=== PATIENT | male | born 1935 | race Caucasian/White ===

== ENCOUNTER 2019-06-06 08:40 | Observation (INO) ==
--- NOTE | 2019-06-06 09:52 | History & Physical Bridge Note ---
Date of Service June 06, 2019 History & Physical Bridge Note I have examined the patient, reviewed the History & Physical and in the interval since the performance of the History & Physical I have noted the following changes of clinical significance: no changes noted
--- NOTE | 2019-06-06 09:52 | Pre Anesthesia Assessment ---
Date of Service June 06, 2019 Pre Sedation Assessment Vital Signs Temp Pulse Resp BP Pulse Ox 06/06/19 09:27 36.9 C 57 L 20 161/87 H 97 Cardiovascular RRR, no murmur, no edema Respiratory normal respiratory effort, lungs clear to auscultation Pre-Sedation Airway Assessment Smoking Status: Never smoker Hx Sleep Apnea: No Short, Thick Neck: No Thyromental Distance: > or= 3.5 Finger Breadths Oral Cavity: + WNL Mallampati Class: II ASA: ASA3 NPO Status Date of Last Intake of Fluids: 06/05/19 Time of Last Intake of Fluids: 06:30 Last Oral Intake of Fluids Comment: sip with meds Date of Last Intake of Solid Food: 06/06/19 Time of Last Intake of Solid Foods: 18:00 Procedure Planning Contraindications for Sedation: none Current Medications Reviewed: Yes Notes The planned sedation has been discussed with the patient. Informed Consent was obtained. I have identified the patient, determined the appropriateness of kari tion and have assessed the patient immediately prior to the procedure. All medicine(s) and interventions are by my order.
[2019-06-06] MEDS ORDERED: LIDOCAINE HCL 1% 20 ML VIAL ONE (10:00)
[2019-06-06] MEDS ORDERED: BACITRACIN INJ 50,000 UNIT VIAL ONE (10:00)
[2019-06-06] MEDS ORDERED: BUPIVACAINE 0.25% 30 ML VIAL ONE (10:00)
[2019-06-06] MEDS ORDERED: MIDAZOLAM HCL 5 MG/ML 1 ML VIAL ONE (10:25)
[2019-06-06] MEDS ORDERED: CEFAZOLIN 250 MG/ML 1 GM VIAL ONE (10:25)
[2019-06-06] MEDS ORDERED: fentaNYL citrate 100 MCG/2 ML VIAL ONE (10:25)
[2019-06-06] MEDS ORDERED: OXYCODONE/ACETAMINOPHEN 5mg/325mg TAB PO PRN (11:41)
[2019-06-06] MEDS: ASPIRIN 81 MG ECTAB PO SCH (13:46)
[2019-06-06] MEDS: PANTOprazole 40 MG TAB PO SCH (13:47)
[2019-06-06] MEDS ORDERED: INFLUENZA ADMINISTRATION CHARGE ONE (14:15)
[2019-06-06] MEDS ORDERED: INFLUENZA VACCINE HIGH DOSE 65+ 0.5 ML SYR IM ONE (14:15)
[2019-06-06] MEDS: ACETAMINOPHEN 325 MG TAB PO PRN ×2 (15:20→20:46)
--- NOTE | 2019-06-06 15:48 | Operative Report ---
DATE OF OPERATION: 06/06/2019 PREOPERATIVE DIAGNOSIS: Sick sinus syndrome. POSTOPERATIVE DIAGNOSIS: Sick sinus syndrome. PROCEDURE: Dual chamber responsive permanent pacemaker under fluoroscopic guidance. SURGEON: Sandrine Puentes DO. TURRET LATHE SET UP OPERATOR: None. ANESTHESIA: Monitored conscious sedation administered under my supervision by Nazia Fitzpatrick, start time 10:28, end time 11:36, a total of 3 mg of Versed and 75 mcg of fentanyl. INTRAVENOUS FLUIDS: 30 mL. ANTIBIOTICS: 2 g of Ancef. BLOOD LOSS: 10 mL. URINE OUTPUT: None. SPECIMENS: None. FINDINGS: See below. DRAINS: None. 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 Due to his sick sinus syndrome, he is recommended a dual chamber pacemaker. CONSENT: Consent was obtained prior to the patient going into the electrophysiology lab. The patient was informed of risks, benefits and alternatives to the procedure. Risks include but not limited to sudden cardiac , cardiac arrhythmia, cerebrovascular accident, myocardial infarction, injury to the blood vessels, chamber of the heart, lungs, bleeding and infection. The patient understood these risks and agreed to the procedure as planned. Informed consent was obtained. DESCRIPTION OF THE PROCEDURE: The patient was brought into the electrophysiology lab in a fasting state. He was connected to continuous cardiac cath lab manager. A timeout was performed to ensure patient identity and procedure correctly. The patient was prepped and draped over the left infraclavicular space in normal surgical standard fashion. Monitored conscious sedation was given throughout the procedure for patient's comfort level. [place] precautions maintained throughout the procedure. 10 mL of 1% lidocaine-bupivacaine mixture were given in the left deltopectoral groove. Incision was made in the left deltopectoral groove. Blunt dissection was performed down to identify the cephalic vein. Cephalic vein was identified and isolated using 0 silk ties. The vein was nicked with 11 blade and a guidewire was inserted without any resistance. An 8-Kittitian sheath was inserted over the guidewire without any resistance. Dilator was removed and a second guidewire was inserted through the 8-Kittitian sheath to allow for retained venous access. The sheath was removed, flushed, dilator reinserted over and then it was reinserted over one of the guidewires. The guidewire and dilator removed. Right ventricular lead was then advanced into right ventricle and I tried to position into the right ventricular apex, but it kept riding up on some trabecula. So, we ultimately put it on the right ventricular mid septum. Of note, I did have to reposition it a few times, but there was adequate pacing and sensing thresholds and no diaphragmatic stimulation with high output pacing. The 8-Kittitian sheath was peeled away and lead was fixated to pectoralis muscle using 0 silk suture. A second 8-Kittitian sheath was inserted over the retained guidewire without any resistance. Guidewire and dilator removed. The right atrial lead was then advanced into the right atrium and positioned into the right atrial appendage under fluoroscopic guidance. There was adequate pacing and sensing thresholds and no diaphragmatic stimulation with high output pacing. The 8-Kittitian sheath was peeled away and lead was fixated to pectoralis muscle using 0 silk suture. Pacemaker pocket was created using blunt dissection over the pectoralis muscle within the pectoral fascia. The pocket was flushed with copious amounts of bacitracin saline wash and inspected for hemostasis. Pulse generator was then attached to the leads, making sure that the pins were in appropriate position, passed set screw and set screws were all tightened. Pulse generator was then placed in a Tyrx pouch as the patient did just have dental procedure 4 weeks ago and then it was placed in the pocket, making sure that the leads were lying flat beneath the device. A stay stitch using 0 silk suture was used to secure this to the pectoralis muscle. The incision was closed in a 3-layer fashion with 2-0 Vicryl interrupted suture followed by 3-0 Vicryl interrupted suture followed by 4-0 Monocryl running stitch. Dermabond was applied followed then by a Telfa and Micropore dressing. EQUIPMENT: 1. Pulse generator is a Medtronic Lucie XT DR TORIN Aceves [id number], serial number [id number]. 2. Right atrial lead Medtronic 5076-52 cm, serial number [id number]. 3. Right ventricular lead, Medtronic 5076-58 cm, serial number [id number]. 4. Antibiotic: Tyrx pouch reference [id number], lot number [id number], expiration 07/29/2019. INTRAOPERATIVE TESTIN. Right atrial lead: P waves 4 millivolts, impedance 589 ohms, threshold 0.3 volts at 0.5 milliseconds. 2. Right ventricular lead: R waves 7.2 millivolts, impedance 882 ohms, threshold 0.5 volts at 0.5 milliseconds. FINAL PARAMETERS THROUGH THE DEVICE: 1. Right atrial lead: P waves 1.9 millivolts, impedance 494 ohms, threshold 0.5 volts at 0.4 milliseconds. 2. Right ventricular lead: R waves 2.9 millivolts bipolar, for unipolar 6.5 millivolts, impedance 665 ohms, threshold 0.5 volts at 0.4 milliseconds. FINAL PARAMETERS: MVP 60/120. Right atrial amplitude 3.5 volts, pulse width 0.5 milliseconds, sensitivity 0.3 millivolts. Right ventricular amplitude 3.5 volts, pulse width 0.5 milliseconds, sensitivity 0.9 millivolts. IMPRESSION: Successful implantation of a dual chamber rate responsive permanent pacemaker under fluoroscopic guidance secondary to sick sinus syndrome. PLAN: Monitor patient overnight, 12-lead ECG, chest x-ray. He is not allowed to lift left elbow or left shoulder for 1 month. He cannot lift more than 10 pounds with the left arm for 2 weeks. He can shower in 2 days, let water run over the incision, do not scrub it. Try to keep the Micropore dressing on until his wound check the following week. We will increase his metoprolol to 25 mg twice a day and he will continue to follow with general cardiology. I attest to the content of the Intraoperative Record and any orders documented therein. Any exception s are noted below.
[2019-06-06] MEDS: METOPROLOL TARTRATE 25 MG TAB PO SCH (20:46)
[2019-06-06] MEDS: MEMANTINE HCL 5 MG TAB PO SCH (20:46)
[2019-06-07] MEDS: MEMANTINE HCL 5 MG TAB PO SCH (07:59)
[2019-06-07] MEDS: PANTOprazole 40 MG TAB PO SCH (07:59)
[2019-06-07] MEDS: ASPIRIN 81 MG ECTAB PO SCH (08:00)
[2019-06-07] MEDS: METOPROLOL TARTRATE 25 MG TAB PO SCH (08:00)
--- NOTE | 2019-06-07 08:22 | XRay Report ---
XR chest 2V routine HISTORY: 83 years-old Male post implant status post placement of a left subclavian pacer COMPARISON: None available TECHNIQUE: PA and lateral views of the chest FINDINGS: Cardiomediastinal and hilar silhouettes are within normal limits. Left subclavian pacer has been plac ed, distal leads overlying the expected locations of the right atrium and right ventricle. No postpro cedural pneumothorax identified. No pleural effusion, overt pulmonary edema or focal airspace consoli dation. Hazy ill-defined increased density of the lateral right midlung may be secondary to summation density. Degenerative changes are noted about the shoulders and spine. IMPRESSION: Status post placement of a left subclavian pacer. No postprocedural pneumothorax. The above report was generated using voice recognition software. It may contain grammatical, syntax o r spelling errors. Electronically signed by: Lawson Wells M.D. 06/07/2019 8:21 AM
[2019-06-07] MEDS ORDERED: DONEPEZIL HCL 5 MG TAB PO SCH (09:00)
--- NOTE | 2019-06-14 10:39 | Discharge Summary ---
Date of Service June 07, 2019 Admission HPI Per Admitting Provider pt admitted for elective ppm due to SSS Admission Exam Per Admitting Provider aaox3, NAD NC/AT, EOMI Supple No JVD Nrl S1/S2, No murmur CTA b/l no w/r/r soft nt/nd no LE edema b/l skin intact no focal deficits Principal Diagnosis SSS s/p dual chamber pacemaker Discharge Exam aaox3, NAD NC/AT, EOMI Supple No JVD Nrl S1/S2, No murmur CTA b/l no w/r/r soft nt/nd no LE edema b/l skin intact no focal deficits left pectoral incision intact, no hematoma mild ecchymosis ENMT Mallampati Class: II Respiratory normal respiratory effort, lungs clear to auscultation Cardiovascular RRR, no murmur, no edema Discharge Data Allergies Allergy/AdvReac Type Severity Reaction Status Date / Time No Known Allergies Allergy Unverified 10/24/13 23:19 Procedures Performed Operation Date: 06/06/19 10:00 Actual Procedures p Pacer with A/V Leads (Dual) - Sandrine Puentes DO Ordered Studies ECG: AP-VS CXR: No PTX leads in position Pacemaker Interrogation: Normal and stable lead testing since implant 06/06/19 06:58 CL Cath Imgs for PACS use only Routine Hospital Course (1) SSS (sick sinus syndrome): Total Time Total Time Spent Total Time Spent (In Minutes): 30 Total Time Includes: Examination of the Patient, Discharge Planning, Medication Reconciliation and Other Discharge Plan Discharge Items Patient Disposition: Home - Self-Care Reason For Visit: SSS, DUAL CHAMBER PACER Discharge Diagnosis: SSS s/p dual chamber ppm Condition on Discharge: Good Activity: As commented below Activity Comment: do not lift the left elbow over the left shoulder for 1 month Lifting: No more than 10 pounds Lifting Comment: do not lift more than 10 pounds with the left arm for 2 weeks Bathing: Keep incision dry Bathing Comment: can shower thurs let water run over the incision do not scrub it Sexual Activity: After two weeks Non-emergency contact: Jointer Operator Call non-emergency contact if: you have any medication questions Follow-up/Referrals: aGldino Grayson MD [Primary Care Provider] - Diet: Heart Healthy Addtl Attending Provider Instructions: try to keep the white dressing on until your wound check next week device and wound check saturday 06/16 if you notice any concerns at the incision site call my office Pending Studies at Discharge: No Stand-Alone Forms: [facility] Medications and DC Order Prescriptions: New metoprolol tartrate 25 mg Tablet 25 mg PO BID Qty: 60 RF: 0 Continued memantine 5 mg Tablet 5 mg PO BID RF: 0 atorvastatin [Lipitor] 20 mg Tablet DAILY RF: 0 donepezil [Aricept] 5 mg Tablet 5 mg PO DAILY RF: 0 lansoprazole [Prevacid] 30 mg Capsule,Delayed Release(Dr/Ec) 30 mg PO DAILY RF: 0 aspirin 81 mg Tablet,Chewable 81 mg PO DAILY RF: 0 fluticasone propionate [Flonase Allergy Relief] 50 mcg/actuation [place],Suspension 2 spray INTRANASAL DAILY RF: 0 ipratropium bromide 0.03 % [place],Non-Aerosol 2 spray INTRANASAL BID PRN (Reason: Allergy Symptoms) RF: 0 calcium carbonate-vitamin D3 [Calcium 600 + D(3)] 600 mg(1,500mg) -400 unit Tablet RF: 0 Discontinued metoprolol tartrate 25 mg Tablet 12.5 mg PO BID RF: 0 Discharge Orders: Discharge Order (Routine); Ordered 06/07/19 Ordered By: Sandrine Puentes Admission Data Admit Date/Time: 06/06/19 11:21 Attending Provider: Sandrine Puentes Admit Provider: Sandrine Puentes Primary Care Provider: Galdino Grayson Other Interventions: Discharge Summary Assessment (RN) Last Done: 06/07/19 14:06 DC Date/Time DO NOT enter until pt leaves facility: 06/07/19 14:33
== END 2019-06-07 14:33 | disposition home or self-care (01) ==
LOC: 2E 08:40 → EP 08:40

== ENCOUNTER 2022-07-23 18:54 | Observation (INO) ==
[2022-07-23 19:26] LABS: Basophils # (auto) 0.05 K/uL (0-0.2); Basophils % (auto) 0.4 %; Eosinophils # (auto) 0.04 K/uL (0-0.50); Eosinophils % (auto) 0.3 %; Hematocrit (blood only) 37.2 % (40.1-51.0); Hemoglobin 12.6 g/dl (14.0-18.0); Immature Granulocytes # (auto) 0.04 K/uL (0.00-0.02); Immature Granulocytes % (auto) 0.3 %; Lymphocytes # (auto) 0.98 K/uL (1.2-3.4); Lymphocytes % (auto) 7.6 %; Mean Corpuscular Hemoglobin 29.3 pg (25.0-34.0); Mean Corpuscular Hgb Conc 33.9 g/dL (32.0-36.0); Mean Corpuscular Volume 86.5 fL (80.0-100.0); Mean Platelet Volume 10.3 fL (9.4-12.4); Monocytes # (auto) 0.54 K/uL (0.24-0.82); Monocytes % (auto) 4.2 %; Neutrophils # (auto) 11.27 K/uL (1.4-6.5); Neutrophils % (auto) 87.2 %; Platelet Count 213 K/uL (130-400); RDW Coefficient of Variation 13.1 % (11.5-14.5); RDW Standard Deviation 40.8 fL (36.4-46.3); White Blood Count 12.92 K/ul (4.8-10.8)
[2022-07-23 19:45] LABS: Albumin Globulin Ratio 1.6 (0.9-2); Bilirubin,Total 0.6 mg/dl (0.2-1.0); Creatinine Clr Calc Pharmacy 30.6 ml/min; Est GFR (African American) 43.9 ml/min; Est GFR (Non-African American) 37.9 ml/min; Globulin 2.5 gm/dl (2.5-4.0); Potassium 4.5 mmol/L (3.5-5.1); Total Protein 6.5 gm/dl (6.0-8.3)
[2022-07-23] MEDS ORDERED: SODIUM CHLORIDE 0.9% 1000ML 500 ML IV ONE (19:51)
[2022-07-23] MEDS ORDERED: SODIUM CHLORIDE 0.9% 1000ML 1,000 ML IV STA (19:51)
[2022-07-23 20:30] LABS: Appearance Urine Clear (Clear); Bacteria Urine Automated Negative (Negative); Bilirubin Urine Negative (Negative); Blood Urine Negative (Negative); Color Urine Yellow; Epithelial Cell Urine Auto 0-5 /lpf (0-5); Glucose Urine UA Negative (Negative); Ketones Urine Trace (Negative); Leukocyte Esterase Urine Negative (Negative); Nitrite Urine Negative (Negative); Protein Urine 1+ (Negative); RBC Urine Automated 0-4 /hpf (0-4); Specific Gravity Urine 1.023 (1.000-1.030); Urobilinogen Urine Negative (Negative); pH Urine 5.5 (4.5-7.5)
--- NOTE | 2022-07-24 00:15 | Emergency Department Note ---
Impression & Plan Abdominal pain, lower, Constipation, Acute hypotension, Leukocytosis ED Provider Note INFORMANT: Family and patient ED PROVIDER(S): Isac Garza MD CHIEF COMPLAINT: Hypotension and constipation PLAN: Disposition: Admitted Condition: Good Outpatient prescription management: none Referral: None MEDICAL DECISION MAKING: Patient presented because of hypotension and constipation issues. He had some lower abdominal discomfort. He was hydrated. The patient's blood work revealed a mild leukocytosis and chemistry panel revealed some mild dehydration. Urinalysis was unremarkable as were LFTs. The patient underwent CT imaging. He had some delay due to volume to get his read. The read does show moderate amount of stool but no other acute findings. Patient was given an enema. Given the patient's profound hypotension in the 70s and constipation issues with mild leukocytosis further management in the hospital felt to be appropriate. Record review indicates patient had an episode in May. [facility] Patient was evaluated in the ER for further management. Triage Nursing notes reviewed and agree them. Vital Signs: reviewed and remarkable for hypotension Differential diagnosis: Functional constipation, impaction, obstruction, volvulus, metabolic abnormality, infection, neurologic, sepsis, as well as other pathologies. Diagnostics interpreted by me: ECG: Twelve-lead ECG reveals a sinus rhythm with sinus arrhythmia and frequent dual chamber pacing. Anterolateral T wave inversions. Cardiac Monitoring: Cardiac monitoring ordered by me: The patient was placed on continuous cardiac monitoring and observed. It revealed a normal sinus rhythm at 60 beats per minute without ectopy or evidence of dysrhythmia. Imaging studies: CT ABDOMEN & PELVIS Without Contrast: No significant change as to 06/07/2022. No bowel obstruction or ileus. Abundant stool throughout the colon. No evidence for appendicitis. Scattered left colon diverticuli without evidence for diverticulitis. No free fluid. Liver is unremarkable. Gallbladder is unremarkable and without gallstones. No evidence for biliary ductal dilation. Pancreas is unremarkable. Spleen is unremarkable. No obstructive uropathy. Unchanged cyst in the upper pole of left kidney. No renal or ureteral calculi.. Urinary bladder is partially contracted with nonspecific wall thickening. No abdominal aortic aneurysm. Atherosclerotic vascular calcifications. Spine degenerative changes. Mild bibasilar atelectasis. HPI: The patient is a 86year old male who presents to the Emergency Room with complaints of constipation and low blood pressure. This started about 3 days ago regarding the constipation and the blood pressure was noted today. The patient also notes the following associated symptoms, lower abdominal pain. EMS noted the patient blood pressure was in the 70s. Family states he has had a similar problem in the past with constipation issues and his blood pressure dropping. The patient has been given milk of magnesia unsuccessfully for relieving factors. Patient has significant dementia. Unable to quantify pain. Pt denies LOC, headache, fevers, chills, chest pain, breathing difficulties, nausea, vomiting, back pain, melena, hematochezia, urinary symptoms, numbness, weakness, lymphadenopathy, rash, or other complaints. ROS: See above HPI for pertinent positives & negatives. Limited secondary to dementia. PAST MEDICAL HISTORY:See Below , sick sinus syndrome PAST SURGICAL HISTORY:See Below, pacemaker FAMILY HISTORY:See Below SOCIAL HISTORY:See Below, retired HOME MEDICATIONS:See Below ALLERGIES:See Below VITALS:See Below PHYSICAL EXAMINATION: GENERAL: Awake, alert, uncomfortable-appearing, in no distress HENT: Normocephalic, atraumatic. Oropharynx unremarkable. EYES: Normal conjunctiva. Sclera non-icteric. NECK: Inspection normal. Non-tender. Supple. No nuchal rigidity. FROM. No frederic s. RESPIRATORY: Clear to auscultation. No wheezes. No rales. Normal respiratory effort. CARDIAC: Normal rate. Normal rhythm. No murmurs. No rubs. Extremities warm and well perfused. Pulses equal. No JVD. GI: Soft, non-distended. Lower tenderness to palpation. No rebound or guarding. No masses. RECTAL: Deferred. MUSCULOSKELETAL: Atraumatic. Chest examination reveals no tenderness. The back is symmetrical on inspection without obvious abnormality. There is no CVA tenderness to palpation. No joint edema. LOWER EXTREMITIES: Calves are equal size bilaterally and non-tender. No edema. No discoloration. NEURO: Normal sensorium. No sensory or motor deficits noted. SKIN: No rash or jaundice noted. Isac Garza MD Past Med/Surg History Medical History GERD (gastroesophageal reflux disease) Hypertension SSS (sick sinus syndrome) pt admitted for elective ppm implant. Underwent procedure without any complications; monitored overnight and discharged home. Surgical History S/P tonsillectomy [place] teeth extracted Social History Smoking Status: Never smoker Hx Alcohol Use: No Hx Substance Use: No Preferred Language: Icelandic Communication Ability: Effective Senior Net Web Developer Required: No Beliefs That Will Affect Care: None Current Living Situation: Spouse Feels Safe at Home: Yes Assistive Devices: Glasses, Hearing Aid - Left and Hearing Aid - Right Allergies Allergies Allergy/AdvReac Type Severity Reaction Status Date / Time house dust Allergy Unknown ON MED LIST Verified 07/23/22 20:22 pollen extracts Allergy Unknown ON MED LIST Verified 07/23/22 20:22 Home Meds Home Medications Medication Instructions Recorded Confirmed aspirin 81 mg chewable tablet 81 mg PO DAILY 06/06/19 07/23/22 atorvastatin 20 mg tablet (Lipitor) 20 mg PO HS 06/06/19 07/23/22 calcium carbonate 600 mg-vitamin 1 tab PO DAILY 06/06/19 07/23/22 D3 10 mcg (400 unit) tablet (Calcium 600 + D(3)) fluticasone propionate 50 2 spray intranasal DAILY 06/06/19 07/23/22 mcg/actuation nasal spray,suspension (Flonase Allergy Relief) Health Shake 1 can PO BIDM 06/07/22 07/23/22 acetaminophen 325 mg tablet 650 mg PO Q4H PRN PAIN/FEVER >100 06/07/22 07/23/22 (Tylenol) docusate sodium 100 mg capsule 100 mg PO BID 06/07/22 07/23/22 levothyroxine 50 mcg tablet 50 mcg PO DAILYBB 06/07/22 07/23/22 lisinopril 5 mg tablet 5 mg PO DAILY 06/07/22 07/23/22 metoprolol tartrate 25 mg tablet 12.5 mg PO BID 06/07/22 07/23/22 omeprazole 20 mg capsule,delayed 20 mg PO DAILYBB 06/07/22 07/23/22 release sertraline 100 mg tablet 100 mg PO QAM 06/07/22 07/23/22 vit C 250 mg-vit E 90 mg-zinc 40 1 tab PO BID 06/07/22 07/23/22 mg-copper 1 [id number] capsule (PreserVision AREDS-2) triamcinolone acetonide 0.1 % 1 applic topical BID PRN ITCHY 07/23/22 07/23/22 topical cream AREAS Results & Data (ED) Vital Signs Vital Signs - 24 hr 07/23/22 18:57 07/23/22 19:01 07/23/22 19:01 Temperature 37 C Temperature Source Oral Pulse Rate 76 Pulse Rate [Apical] 69 Pulse Rate from SpO2 Sensor Respiratory Rate 19 18 Respiratory Effort / Characteristics Non-Labored Spontaneous Non-Labored Spontaneous Respiratory Depth Normal Normal Respiratory Pattern Regular Regular Blood Pressure 135/79 Blood Pressure [Right Arm] 114/69 Blood Pressure Mean 97 Blood Pressure Mean [Right Arm] 84 Pulse Oximetry 95 95 95 Oxygen Delivery Method Room Air Room Air Room Air Sepsis Recent Fever Within 48 Hours No Sepsis New/Unexplained Change in Mental Status No Sepsis Action Taken by Nursing No Action Required 07/23/22 19:13 07/23/22 19:01 07/23/22 19:02 Temperature Temperature Source Pulse Rate 66 70 Pulse Rate [Apical] Pulse Rate from SpO2 Sensor 70 Respiratory Rate 15 16 Respiratory Effort / Characteristics Respiratory Depth Respiratory Pattern Blood Pressure 108/64 114/69 Blood Pressure [Right Arm] Blood Pressure Mean 78 84 Blood Pressure Mean [Right Arm] Pulse Oximetry 94 94 Oxygen Delivery Method Room Air Sepsis Recent Fever Within 48 Hours Sepsis New/Unexplained Change in Mental Status Sepsis Action Taken by Nursing 07/23/22 19:06 07/23/22 19:06 07/23/22 19:10 Temperature Temperature Source Pulse Rate 66 64 Pulse Rate [Apical] Pulse Rate from SpO2 Sensor 66 64 Respiratory Rate 1 L 12 Respiratory Effort / Characteristics Respiratory Depth Respiratory Pattern Blood Pressure 114/65 Blood Pressure [Right Arm] Blood Pressure Mean 81 Blood Pressure Mean [Right Arm] Pulse Oximetry 92 95 Oxygen Delivery Method Sepsis Recent Fever Within 48 Hours Sepsis New/Unexplained Change in Mental Status Sepsis Action Taken by Nursing 07/23/22 19:11 07/23/22 19:11 07/23/22 19:15 Temperature Temperature Source Pulse Rate 66 Pulse Rate [Apical] Pulse Rate from SpO2 Sensor Respiratory Rate 16 Respiratory Effort / Characteristics Respiratory Depth Respiratory Pattern Blood Pressure 108/64 104/59 L Blood Pressure [Right Arm] Blood Pressure Mean 78 74 Blood Pressure Mean [Right Arm] Pulse Oximetry Oxygen Delivery Method Sepsis Recent Fever Within 48 Hours Sepsis New/Unexplained Change in Mental Status Sepsis Action Taken by Nursing 07/23/22 19:15 07/23/22 19:16 07/23/22 19:16 Temperature Temperature Source Pulse Rate 67 65 Pulse Rate [Apical] Pulse Rate from SpO2 Sensor 67 64 Respiratory Rate 12 16 Respiratory Effort / Characteristics Respiratory Depth Respiratory Pattern Blood Pressure 96/66 L 98/66 L Blood Pressure [Right Arm] Blood Pressure Mean 76 76 Blood Pressure Mean [Right Arm] Pulse Oximetry 95 95 Oxygen Delivery Method Sepsis Recent Fever Within 48 Hours Sepsis New/Unexplained Change in Mental Status Sepsis Action Taken by Nursing 07/23/22 19:20 07/23/22 19:20 07/23/22 19:25 Temperature Temperature Source Pulse Rate 81 64 Pulse Rate [Apical] Pulse Rate from SpO2 Sensor Respiratory Rate 15 15 Respiratory Effort / Characteristics Respiratory Depth Respiratory Pattern Blood Pressure 101/55 L Blood Pressure [Right Arm] Blood Pressure Mean 70 Blood Pressure Mean [Right Arm] Pulse Oximetry 96 95 Oxygen Delivery Method Sepsis Recent Fever Within 48 Hours Sepsis New/Unexplained Change in Mental Status Sepsis Action Taken by Nursing 07/23/22 19:25 07/23/22 19:30 07/23/22 19:30 Temperature Temperature Source Pulse Rate 87 Pulse Rate [Apical] Pulse Rate from SpO2 Sensor Respiratory Rate 15 Respiratory Effort / Characteristics Respiratory Depth Respiratory Pattern Blood Pressure 100/62 93/57 L Blood Pressure [Right Arm] Blood Pressure Mean 74 69 Blood Pressure Mean [Right Arm] Pulse Oximetry Oxygen Delivery Method Sepsis Recent Fever Within 48 Hours Sepsis New/Unexplained Change in Mental Status Sepsis Action Taken by Nursing 07/23/22 19:36 07/23/22 19:36 07/23/22 19:40 Temperature Temperature Source Pulse Rate 66 Pulse Rate [Apical] Pulse Rate from SpO2 Sensor 68 Respiratory Rate 16 Respiratory Effort / Characteristics Respiratory Depth Respiratory Pattern Blood Pressure 125/83 125/85 Blood Pressure [Right Arm] Blood Pressure Mean 97 98 Blood Pressure Mean [Right Arm] Pulse Oximetry 95 Oxygen Delivery Method Sepsis Recent Fever Within 48 Hours Sepsis New/Unexplained Change in Mental Status Sepsis Action Taken by Nursing 07/23/22 19:40 07/23/22 19:45 07/23/22 19:45 Temperature Temperature Source Pulse Rate 64 65 Pulse Rate [Apical] Pulse Rate from SpO2 Sensor Respiratory Rate 24 15 Respiratory Effort / Characteristics Respiratory Depth Respiratory Pattern Blood Pressure 116/67 Blood Pressure [Right Arm] Blood Pressure Mean 83 Blood Pressure Mean [Right Arm] Pulse Oximetry 96 Oxygen Delivery Method Sepsis Recent Fever Within 48 Hours Sepsis New/Unexplained Change in Mental Status Sepsis Action Taken by Nursing 07/23/22 19:50 07/23/22 19:50 07/23/22 19:55 Temperature Temperature Source Pulse Rate 61 Pulse Rate [Apical] Pulse Rate from SpO2 Sensor Respiratory Rate 15 Respiratory Effort / Characteristics Respiratory Depth Respiratory Pattern Blood Pressure 107/64 109/66 Blood Pressure [Right Arm] Blood Pressure Mean 78 80 Blood Pressure Mean [Right Arm] Pulse Oximetry 97 Oxygen Delivery Method Sepsis Recent Fever Within 48 Hours Sepsis New/Unexplained Change in Mental Status Sepsis Action Taken by Nursing 07/23/22 19:55 07/23/22 20:00 07/23/22 20:01 Temperature Temperature Source Pulse Rate 60 72 Pulse Rate [Apical] Pulse Rate from SpO2 Sensor 73 Respiratory Rate 15 19 Respiratory Effort / Characteristics Respiratory Depth Respiratory Pattern Blood Pressure 140/85 Blood Pressure [Right Arm] Blood Pressure Mean 103 Blood Pressure Mean [Right Arm] Pulse Oximetry 98 Oxygen Delivery Method Sepsis Recent Fever Within 48 Hours Sepsis New/Unexplained Change in Mental Status Sepsis Action Taken by Nursing 07/23/22 20:01 07/23/22 20:05 07/23/22 20:05 Temperature Temperature Source Pulse Rate 66 68 Pulse Rate [Apical] Pulse Rate from SpO2 Sensor 69 71 Respiratory Rate 18 21 Respiratory Effort / Characteristics Respiratory Depth Respiratory Pattern Blood Pressure 135/92 Blood Pressure [Right Arm] Blood Pressure Mean 106 Blood Pressure Mean [Right Arm] Pulse Oximetry 98 99 Oxygen Delivery Method Sepsis Recent Fever Within 48 Hours Sepsis New/Unexplained Change in Mental Status Sepsis Action Taken by Nursing 07/23/22 20:10 07/23/22 20:10 07/23/22 20:15 Temperature Temperature Source Pulse Rate 63 Pulse Rate [Apical] Pulse Rate from SpO2 Sensor 68 Respiratory Rate 17 Respiratory Effort / Characteristics Respiratory Depth Respiratory Pattern Blood Pressure 144/84 H 132/73 Blood Pressure [Right Arm] Blood Pressure Mean 104 92 Blood Pressure Mean [Right Arm] Pulse Oximetry 93 Oxygen Delivery Method Sepsis Recent Fever Within 48 Hours Sepsis New/Unexplained Change in Mental Status Sepsis Action Taken by Nursing 07/23/22 20:15 07/23/22 20:20 07/23/22 20:20 Temperature Temperature Source Pulse Rate 64 61 Pulse Rate [Apical] Pulse Rate from SpO2 Sensor 75 62 Respiratory Rate 16 18 Respiratory Effort / Characteristics Respiratory Depth Respiratory Pattern Blood Pressure 125/75 Blood Pressure [Right Arm] Blood Pressure Mean 91 Blood Pressure Mean [Right Arm] Pulse Oximetry 97 96 Oxygen Delivery Method Sepsis Recent Fever Within 48 Hours Sepsis New/Unexplained Change in Mental Status Sepsis Action Taken by Nursing 07/23/22 20:25 07/23/22 20:25 07/23/22 20:30 Temperature Temperature Source Pulse Rate 62 Pulse Rate [Apical] Pulse Rate from SpO2 Sensor Respiratory Rate 15 Respiratory Effort / Characteristics Respiratory Depth Respiratory Pattern Blood Pressure 126/75 123/71 Blood Pressure [Right Arm] Blood Pressure Mean 92 88 Blood Pressure Mean [Right Arm] Pulse Oximetry Oxygen Delivery Method Sepsis Recent Fever Within 48 Hours Sepsis New/Unexplained Change in Mental Status Sepsis Action Taken by Nursing 07/23/22 20:30 07/23/22 20:37 07/23/22 20:37 Temperature Temperature Source Pulse Rate 60 62 Pulse Rate [Apical] Pulse Rate from SpO2 Sensor 60 64 Respiratory Rate 16 17 Respiratory Effort / Characteristics Respiratory Depth Respiratory Pattern Blood Pressure 129/61 Blood Pressure [Right Arm] Blood Pressure Mean 83 Blood Pressure Mean [Right Arm] Pulse Oximetry 98 98 Oxygen Delivery Method Sepsis Recent Fever Within 48 Hours Sepsis New/Unexplained Change in Mental Status Sepsis Action Taken by Nursing 07/23/22 20:40 07/23/22 20:40 07/23/22 20:45 Temperature Temperature Source Pulse Rate 65 70 Pulse Rate [Apical] Pulse Rate from SpO2 Sensor 63 67 Respiratory Rate 17 15 Respiratory Effort / Characteristics Respiratory Depth Respiratory Pattern Blood Pressure 119/66 Blood Pressure [Right Arm] Blood Pressure Mean 83 Blood Pressure Mean [Right Arm] Pulse Oximetry 99 99 Oxygen Delivery Method Sepsis Recent Fever Within 48 Hours Sepsis New/Unexplained Change in Mental Status Sepsis Action Taken by Nursing 07/23/22 20:45 07/23/22 20:50 07/23/22 20:50 Temperature Temperature Source Pulse Rate 60 Pulse Rate [Apical] Pulse Rate from SpO2 Sensor 61 Respiratory Rate 16 Respiratory Effort / Characteristics Respiratory Depth Respiratory Pattern Blood Pressure 127/65 123/68 Blood Pressure [Right Arm] Blood Pressure Mean 85 86 Blood Pressure Mean [Right Arm] Pulse Oximetry 99 Oxygen Delivery Method Sepsis Recent Fever Within 48 Hours Sepsis New/Unexplained Change in Mental Status Sepsis Action Taken by Nursing 07/23/22 20:55 07/23/22 20:55 07/23/22 21:00 Temperature Temperature Source Pulse Rate 60 Pulse Rate [Apical] Pulse Rate from SpO2 Sensor 63 Respiratory Rate 15 Respiratory Effort / Characteristics Respiratory Depth Respiratory Pattern Blood Pressure 120/67 125/65 Blood Pressure [Right Arm] Blood Pressure Mean 84 85 Blood Pressure Mean [Right Arm] Pulse Oximetry 98 Oxygen Delivery Method Sepsis Recent Fever Within 48 Hours Sepsis New/Unexplained Change in Mental Status Sepsis Action Taken by Nursing 07/23/22 21:00 07/23/22 21:05 07/23/22 21:05 Temperature Temperature Source Pulse Rate 60 60 Pulse Rate [Apical] Pulse Rate from SpO2 Sensor 60 61 Respiratory Rate 16 15 Respiratory Effort / Characteristics Respiratory Depth Respiratory Pattern Blood Pressure 119/68 Blood Pressure [Right Arm] Blood Pressure Mean 85 Blood Pressure Mean [Right Arm] Pulse Oximetry 97 95 Oxygen Delivery Method Sepsis Recent Fever Within 48 Hours Sepsis New/Unexplained Change in Mental Status Sepsis Action Taken by Nursing 07/23/22 21:10 07/23/22 21:10 07/23/22 21:15 Temperature Temperature Source Pulse Rate 61 Pulse Rate [Apical] Pulse Rate from SpO2 Sensor Respiratory Rate 13 Respiratory Effort / Characteristics Respiratory Depth Respiratory Pattern Blood Pressure 112/62 120/66 Blood Pressure [Right Arm] Blood Pressure Mean 78 84 Blood Pressure Mean [Right Arm] Pulse Oximetry Oxygen Delivery Method Sepsis Recent Fever Within 48 Hours Sepsis New/Unexplained Change in Mental Status Sepsis Action Taken by Nursing 07/23/22 21:15 07/23/22 21:20 07/23/22 21:46 Temperature Temperature Source Pulse Rate 60 82 Pulse Rate [Apical] Pulse Rate from SpO2 Sensor 61 Respiratory Rate 14 15 18 Respiratory Effort / Characteristics Respiratory Depth Respiratory Pattern Blood Pressure Blood Pressure [Right Arm] Blood Pressure Mean Blood Pressure Mean [Right Arm] Pulse Oximetry 97 Oxygen Delivery Method Sepsis Recent Fever Within 48 Hours Sepsis New/Unexplained Change in Mental Status Sepsis Action Taken by Nursing 07/23/22 21:47 07/23/22 21:47 07/23/22 21:50 Temperature Temperature Source Pulse Rate 75 Pulse Rate [Apical] Pulse Rate from SpO2 Sensor Respiratory Rate 17 Respiratory Effort / Characteristics Respiratory Depth Respiratory Pattern Blood Pressure 132/79 132/62 Blood Pressure [Right Arm] Blood Pressure Mean 96 85 Blood Pressure Mean [Right Arm] Pulse Oximetry Oxygen Delivery Method Sepsis Recent Fever Within 48 Hours Sepsis New/Unexplained Change in Mental Status Sepsis Action Taken by Nursing 07/23/22 21:50 07/23/22 21:55 07/23/22 21:55 Temperature Temperature Source Pulse Rate 70 68 Pulse Rate [Apical] Pulse Rate from SpO2 Sensor Respiratory Rate 14 15 Respiratory Effort / Characteristics Respiratory Depth Respiratory Pattern Blood Pressure 124/77 Blood Pressure [Right Arm] Blood Pressure Mean 92 Blood Pressure Mean [Right Arm] Pulse Oximetry 98 Oxygen Delivery Method Sepsis Recent Fever Within 48 Hours Sepsis New/Unexplained Change in Mental Status Sepsis Action Taken by Nursing 07/23/22 22:00 07/23/22 22:00 07/23/22 22:05 Temperature Temperature Source Pulse Rate 67 Pulse Rate [Apical] Pulse Rate from SpO2 Sensor Respiratory Rate 14 Respiratory Effort / Characteristics Respiratory Depth Respiratory Pattern Blood Pressure 122/70 120/67 Blood Pressure [Right Arm] Blood Pressure Mean 87 84 Blood Pressure Mean [Right Arm] Pulse Oximetry 98 Oxygen Delivery Method Sepsis Recent Fever Within 48 Hours Sepsis New/Unexplained Change in Mental Status Sepsis Action Taken by Nursing 07/23/22 22:05 07/23/22 22:10 07/23/22 22:10 Temperature Temperature Source Pulse Rate 63 65 Pulse Rate [Apical] Pulse Rate from SpO2 Sensor Respiratory Rate 14 14 Respiratory Effort / Characteristics Respiratory Depth Respiratory Pattern Blood Pressure 121/75 Blood Pressure [Right Arm] Blood Pressure Mean 90 Blood Pressure Mean [Right Arm] Pulse Oximetry 95 Oxygen Delivery Method Sepsis Recent Fever Within 48 Hours Sepsis New/Unexplained Change in Mental Status Sepsis Action Taken by Nursing 07/23/22 22:15 07/23/22 22:15 07/23/22 22:20 Temperature Temperature Source Pulse Rate 61 Pulse Rate [Apical] Pulse Rate from SpO2 Sensor Respiratory Rate 17 Respiratory Effort / Characteristics Respiratory Depth Respiratory Pattern Blood Pressure 120/66 121/70 Blood Pressure [Right Arm] Blood Pressure Mean 84 87 Blood Pressure Mean [Right Arm] Pulse Oximetry Oxygen Delivery Method Sepsis Recent Fever Within 48 Hours Sepsis New/Unexplained Change in Mental Status Sepsis Action Taken by Nursing 07/23/22 22:20 07/23/22 22:25 07/23/22 22:25 Temperature Temperature Source Pulse Rate 71 64 Pulse Rate [Apical] Pulse Rate from SpO2 Sensor Respiratory Rate 12 15 Respiratory Effort / Characteristics Respiratory Depth Respiratory Pattern Blood Pressure 117/70 Blood Pressure [Right Arm] Blood Pressure Mean 85 Blood Pressure Mean [Right Arm] Pulse Oximetry 95 Oxygen Delivery Method Sepsis Recent Fever Within 48 Hours Sepsis New/Unexplained Change in Mental Status Sepsis Action Taken by Nursing 07/23/22 22:30 07/23/22 22:30 07/23/22 22:35 Temperature Temperature Source Pulse Rate 61 60 Pulse Rate [Apical] Pulse Rate from SpO2 Sensor Respiratory Rate 15 15 Respiratory Effort / Characteristics Respiratory Depth Respiratory Pattern Blood Pressure 124/68 Blood Pressure [Right Arm] Blood Pressure Mean 86 Blood Pressure Mean [Right Arm] Pulse Oximetry 95 Oxygen Delivery Method Sepsis Recent Fever Within 48 Hours Sepsis New/Unexplained Change in Mental Status Sepsis Action Taken by Nursing 07/23/22 22:35 07/23/22 22:40 07/23/22 22:40 Temperature Temperature Source Pulse Rate 60 Pulse Rate [Apical] Pulse Rate from SpO2 Sensor Respiratory Rate 15 Respiratory Effort / Characteristics Respiratory Depth Respiratory Pattern Blood Pressure 121/69 129/63 Blood Pressure [Right Arm] Blood Pressure Mean 86 85 Blood Pressure Mean [Right Arm] Pulse Oximetry 95 Oxygen Delivery Method Sepsis Recent Fever Within 48 Hours Sepsis New/Unexplained Change in Mental Status Sepsis Action Taken by Nursing 07/23/22 22:45 07/23/22 22:45 07/23/22 22:50 Temperature Temperature Source Pulse Rate 60 60 Pulse Rate [Apical] Pulse Rate from SpO2 Sensor Respiratory Rate 15 14 Respiratory Effort / Characteristics Respiratory Depth Respiratory Pattern Blood Pressure 114/67 Blood Pressure [Right Arm] Blood Pressure Mean 82 Blood Pressure Mean [Right Arm] Pulse Oximetry Oxygen Delivery Method Sepsis Recent Fever Within 48 Hours Sepsis New/Unexplained Change in Mental Status Sepsis Action Taken by Nursing 07/23/22 23:00 07/23/22 23:00 07/24/22 00:17 Temperature Temperature Source Pulse Rate 83 Pulse Rate [Apical] 60 Pulse Rate from SpO2 Sensor Respiratory Rate 14 12 Respiratory Effort / Characteristics Respiratory Depth Respiratory Pattern Blood Pressure 92/60 L Blood Pressure [Right Arm] 136/77 Blood Pressure Mean 70 Blood Pressure Mean [Right Arm] 96 Pulse Oximetry 95 97 Oxygen Delivery Method Room Air Sepsis Recent Fever Within 48 Hours Sepsis New/Unexplained Change in Mental Status Sepsis Action Taken by Nursing Laboratory Data Result diagrams: 07/23/22 19:05 07/23/22 19:05 Lab Results 07/23/22 07/23/22 07/23/22 Range/Units 19:05 19:05 19:38 WBC 12.92 H (4.8-10.8) K/ul RBC 4.30 L (4.63-6.08) M/uL Hgb 12.6 L (14.0-18.0) g/dl Hct 37.2 L (40.1-51.0) % MCV 86.5 (80.0-100.0) fL MCH 29.3 (25.0-34.0) pg MCHC 33.9 (32.0-36.0) g/dL RDW Std Deviation 40.8 (36.4-46.3) fL RDW Coeff of [place] 13.1 (11.5-14.5) % Plt Count 213 (130-400) K/uL MPV 10.3 (9.4-12.4) fL Immature Gran % (Auto) 0.3 % Neut % (Auto) 87.2 % Lymph % (Auto) 7.6 % [place] % (Auto) 4.2 % Eos % (Auto) 0.3 % Baso % (Auto) 0.4 % Neut # (Auto) 11.27 H (1.4-6.5) K/uL Lymph # (Auto) 0.98 L (1.2-3.4) K/uL [place] # (Auto) 0.54 (0.24-0.82) K/uL Eos # (Auto) 0.04 (0-0.50) K/uL Baso # (Auto) 0.05 (0-0.2) K/uL Immature Gran # (Auto) 0.04 H (0.00-0.02) K/uL Sodium 141 (136-145) mmol/L Potassium 4.5 (3.5-5.1) mmol/L Chloride 108 H (98-107) mmol/L Carbon Dioxide 26 (21-32) mmol/L Anion Gap 7 (3-11) BUN 26 H (6-23) mg/dl Creatinine 1.62 H (0.6-1.4) mg/dl Est Cr Clr Drug Dosing 30.6 ml/min Est GFR ( Amer) 43.9 ml/min Est GFR (Non-Af Amer) 37.9 ml/min BUN/Creatinine Ratio 16.0 (10-20) Glucose 110 H (70-99(Fasting)) mg/dl POC Glucose 103 H (70-99) mg/dl Lactate (0.4-2.0) mmol/L Calcium 9.0 (8.5-10.1) mg/dl Total Bilirubin 0.6 (0.2-1.0) mg/dl AST 18 (13-39) U/L ALT 15 (7-52) U/L Alkaline Phosphatase 97 (34-104) U/L Total Protein 6.5 (6.0-8.3) gm/dl Albumin 4.0 (3.4-5.0) gm/dl Globulin 2.5 (2.5-4.0) gm/dl Albumin/Globulin Ratio 1.6 (0.9-2) Urine Color Urine Appearance (Clear) Urine pH (4.5-7.5) Ur Specific [place] (1.000-1.030) Urine Protein (Negative) Urine Glucose (UA) (Negative) Urine Ketones (Negative) Urine Blood (Negative) Urine Nitrite (Negative) Urine Bilirubin (Negative) Urine Urobilinogen (Negative) Ur Leukocyte Esterase (Negative) Urine WBC (Auto) (0-5) /hpf Urine RBC (Auto) (0-4) /hpf U Hyaline Cast (Auto) (0-5) /lpf U Epithel Cells (Auto) (0-5) /lpf Urine Bacteria (Auto) (Negative) 07/23/22 07/23/22 Range/Units 20:19 20:38 WBC (4.8-10.8) K/ul RBC (4.63-6.08) M/uL Hgb (14.0-18.0) g/dl Hct (40.1-51.0) % MCV (80.0-100.0) fL MCH (25.0-34.0) pg MCHC (32.0-36.0) g/dL RDW Std Deviation (36.4-46.3) fL RDW Coeff of [place] (11.5-14.5) % Plt Count (130-400) K/uL MPV (9.4-12.4) fL Immature Gran % (Auto) % Neut % (Auto) % Lymph % (Auto) % [place] % (Auto) % Eos % (Auto) % Baso % (Auto) % Neut # (Auto) (1.4-6.5) K/uL Lymph # (Auto) (1.2-3.4) K/uL [place] # (Auto) (0.24-0.82) K/uL Eos # (Auto) (0-0.50) K/uL Baso # (Auto) (0-0.2) K/uL Immature Gran # (Auto) (0.00-0.02) K/uL Sodium (136-145) mmol/L Potassium (3.5-5.1) mmol/L Chloride (98-107) mmol/L Carbon Dioxide (21-32) mmol/L Anion Gap (3-11) BUN (6-23) mg/dl Creatinine (0.6-1.4) mg/dl Est Cr Clr Drug Dosing ml/min Est GFR ( Amer) ml/min Est GFR (Non-Af Amer) ml/min BUN/Creatinine Ratio (10-20) Glucose (70-99(Fasting)) mg/dl POC Glucose (70-99) mg/dl Lactate 1.2 (0.4-2.0) mmol/L Calcium (8.5-10.1) mg/dl Total Bilirubin (0.2-1.0) mg/dl AST (13-39) U/L ALT (7-52) U/L Alkaline Phosphatase (34-104) U/L Total Protein (6.0-8.3) gm/dl Albumin (3.4-5.0) gm/dl Globulin (2.5-4.0) gm/dl Albumin/Globulin Ratio (0.9-2) Urine Color Yellow Urine Appearance Clear (Clear) Urine pH 5.5 (4.5-7.5) Ur Specific [place] 1.023 (1.000-1.030) Urine Protein 1+ H (Negative) Urine Glucose (UA) Negative (Negative) Urine Ketones Trace H (Negative) Urine Blood Negative (Negative) Urine Nitrite Negative (Negative) Urine Bilirubin Negative (Negative) Urine Urobilinogen Negative (Negative) Ur Leukocyte Esterase Negative (Negative) Urine WBC (Auto) 1-5 (0-5) /hpf Urine RBC (Auto) 0-4 (0-4) /hpf U Hyaline Cast (Auto) 1-5 (0-5) /lpf U Epithel Cells (Auto) 0-5 (0-5) /lpf Urine Bacteria (Auto) Negative (Negative) Administered Medications Sodium Chloride (Nss 1000ml) 1,000 mls @ 125 mls/hr IV .Q8H STA Stop: 07/24/22 03:50 Last Admin: 07/23/22 20:21 Dose: 125 mls/hr Documented By: SHERLY Discontinued Medications Sodium Chloride (Nss 1000ml) 500 mls @ 999 mls/hr IV .Q31M ONE Stop: 07/23/22 20:21 Last Infusion: 07/23/22 20:59 Dose: 0 mls/hr Documented By: Admin: 07/23/22 19:59 Dose: 999 mls/hr Documented By: SHERLY Discharge Plan Visit Data Chief Complaint: Hypotension Stated Complaint: CONSTIPATION ED Provider: Isac Garza Discharge Problem: Abdominal pain, lower, Constipation, Acute hypotension, Leukocytosis Forms Stand Alone Forms: My [facility] [employer] Prescriptions Prescriptions: No Action atorvastatin [Lipitor] 20 mg Tablet 20 mg PO HS aspirin 81 mg Tablet,Chewable 81 mg PO DAILY fluticasone propionate [Flonase Allergy Relief] 50 mcg/actuation Pyrites,Suspension 2 spray INTRANASAL DAILY calcium carbonate-vitamin D3 [Calcium 600 + D(3)] 600 mg(1,500mg) -400 unit Tablet 1 tab PO DAILY triamcinolone acetonide 0.1 % Cream 1 applic TOPICAL BID PRN (Reason: ITCHY AREAS) acetaminophen [Tylenol] 325 mg Tablet 650 mg PO Q4H MDD 3 GRAMS/24 HOURS PRN (Reason: PAIN/FEVER >100) sertraline 100 mg tablet 100 mg PO QAM levothyroxine 50 mcg tablet 50 mcg PO DAILYBB docusate sodium 100 mg Capsule 100 mg PO BID Rx Instructions: HOLD FOR LOOSE STOOLS. omeprazole 20 mg capsule,delayed release(DR/EC) 20 mg PO DAILYBB lisinopril 5 mg tablet 5 mg PO DAILY PreserVision AREDS-2 250-90-40-1 mg Capsule 1 tab PO BID Health Shake 1 can PO BIDM metoprolol tartrate 25 mg tablet 12.5 mg PO BID Referrals Referrals: Lucia georgesMonroe [Primary Care Provider] -
[2022-07-24] MEDS ORDERED: NITROGLYCERIN SL 0.4 MG/TAB TAB SL PRN (02:57)
[2022-07-24] MEDS ORDERED: ONDANSETRON INJ 2 MG/ML 2 ML VIAL IV PRN (02:57)
[2022-07-24] MEDS ORDERED: ACETAMINOPHEN 325 MG TAB PO PRN (02:57)
[2022-07-24] MEDS ORDERED: POLYETHYLENE (MIRALAX) 17 GM PACK PO PRN (02:57)
[2022-07-24] MEDS ORDERED: D5W AND NSS 1,000 ML IV SCH (02:57)
[2022-07-24] MEDS ORDERED: TRIAMCINOLONE ACET 0.1% CR 15 GM TUBE TOP PRN (02:57)
--- NOTE | 2022-07-24 03:59 | History and Physical Report ---
DATE OF ADMISSION: 07/23/2022. CHIEF COMPLAINT: Constipation, hypotension. HISTORY OF PRESENT ILLNESS: An 86-year-old male with past medical history significant for moderate to advanced dementia, oriented to name only as per the family, can recognize his family members, history of hypertension, paroxysmal atrial tachycardia, history of sick sinus syndrome, status post pacemaker, chronic kidney disease stage III, GERD, history of BPH, history of spina bifida occulta, osteopenia, sensorineural hearing loss of both ears, Lewy body dementia with out behavioral disturbance, Alzheimer dementia, essential tremor, REM sleep disorder, depression, hyperlipidemia, hypothyroidism, seasonal allergic rhinitis, sleep apnea, currently living at personal half-way at [facility] with his , ambulates without any support,eats food easily chewable. Was brought in because of constipation. As per the , this is the third visit for the constipation and last time he was here was in May with the same problem of consultation and hypotension. He was given enema in the ER and was discharged back. Today he is complaining about lower abdominal discomfort, pain; that is how they know that he is constipated, and brought in here. CAT scan is showing constipation in the preliminary report and blood pressure per EMS was systolic blood pressures in 70s. With the fluids, blood pressure improved in the ER SBP in 140s and 150s . Because of this hypotension, ER wanted to observe in the hospital. Could not get much history from the patient. The patient's son in the room and also called his with whom he lives. No recent fever, no nausea, no vomiting, no complaints of any other pain. As per the son, seems to have some urinary retention. When they straight catheterized him, 300 mL of urine came and he seems a little better. After enema, he had a bowel movement in the ER. Currently, resting comfortably and hemodynamically stable. ALLERGIES: DUST, MOLD, POLLEN. PAST MEDICAL HISTORY: As mentioned above. PAST SURGICAL HISTORY: Colonoscopy, dental surgery, removal of hydrocele, removal of spermatocele, tonsillectomy and adenoidectomy, skin cancer removed from cheek. MEDICATIONS: The patient is on Tylenol 650 mg p.o. q. 4 hours p.r.n., aspirin 81 mg p.o. daily, Lipitor 20 mg p.o. at bedtime, calcium carbonate plus vitamin D one tablet p.o. daily, Colace 100 mg p.o. b.i.d., Flonase 2 sprays intranasal daily, health shake 1 can p.o. b.i.d. with meals, levothyroxine 50 mcg p.o. daily with breakfast, lisinopril 5 mg p.o. daily, metoprolol tartrate 12.5 mg p.o. b.i.d., omeprazole 20 mg p.o. daily, sertraline 100 mg p.o. a.m., triamcinolone topical b.i.d. p.r.n., PreserVision AREDS one tablet p.o. b.i.d. FAMILY HISTORY: Significant for mother has eye problems; father has heart disorder, hypertension; mother has mental disorder; father has Parkinson's. SOCIAL HISTORY: Currently living at personal half-way with his . No smoking, no alcohol, no drug use. REVIEW OF SYSTEMS: As per HPI. Rest of the review of systems unobtainable at this time as the patient has dementia. PHYSICAL EXAMINATION: GENERAL: The patient is somewhat drowsy. HEENT: Pupils are equal, round, and reactive to light. Oral mucosa somewhat dry. NECK: No JVD, no neck masses. CARDIOVASCULAR: S1 and S2 heard. Regular rate and rhythm. No murmur, no gallop. RESPIRATORY SYSTEM: Normal AP diameter. No accessory muscle use. No wheezing, no crackles. ABDOMEN: Soft, bowel sounds present, nontender, no distention. CENTRAL NERVOUS SYSTEM: Drowsy, has bad dementia. Obeys simple commands, moves extremities. EXTREMITIES: No edema, no erythema. LABORATORY DATA: WBC 12.9, hemoglobin 12.6, hematocrit 37.2, platelets 213. Sodium 141, potassium 4.5, chloride 108, bicarb 26, BUN 26, creatinine 1.6, serum glucose 110. Lactate 1.2, calcium 9, total bilirubin 0.6, AST 18, ALT 15, alkaline phosphatase 97. Urinalysis negative. SARS-CoV-2 rapid test negative. IMAGING DATA: CT of abdomen and pelvis, preliminary report, constipation. EKG: Sinus rhythm with marked sinus arrhythmia with frequent AV dual paced complexes at the rate of 78. ASSESSMENT AND PLAN: This is an 86-year-old male who presents with constipation and hypotension. 1. Constipation: Going on for some time, multiple visits to the ER as per family. Received enema in the ER, had a bowel movement. Will monitor. Will give lactulose and Dulcolax suppository and repeat KUB x-ray in the a.m. Good bowel regimen at discharge. Monitor in the hospital. 2. Hypotension: As per family, he is not drinking much water, they have to motivate him to drink water. Could be contributing to his constipation. We will give fluids. Blood pressure improved currently, will monitor. 3. History of hypertension: On lisinopril and metoprolol to give withholding parameters. 4. Hyperlipidemia: On statin. 5. Hypothyroidism: On Synthroid. 6. Gastroesophageal reflux disease: On omeprazole. 7. Depression: On sertraline. 8. History of Alzheimer's dementia, history of Lewy body dementia, moderate to advanced. Used to be on Exelon patch, but that was stopped 10 days ago by neurology because of hallucinations, but the family thinks that his confusion got a little worse after stopping the patch. Needs followup with neurology. 9. History of sick sinus syndrome, status post pacemaker. 10. Chronic kidney disease stage III: Presents with creatinine of 1.6. Seems to be around baseline. Will follow the repeat labs. 11. Deep venous thrombosis prophylaxis: Heparin subcutaneously. DISPOSITION: Closely monitor in the med tele. PT/OT prior to discharge. Social service to help with discharge planning. Level 1 full code as per my discussion with the . Job ID: [id number] MTDD
[2022-07-24] MEDS ORDERED: PANTOprazole 40 MG TAB PO SCH (06:30)
[2022-07-24] MEDS ORDERED: LEVOTHYROXINE SODIUM 50 MCG TABLET PO SCH (06:30)
[2022-07-24] MEDS ORDERED: bisacodyL 10 MG SUPP PR ONE (07:00)
[2022-07-24] MEDS ORDERED: LACTULOSE SYRUP 30 GM/45 ML UDP PO ONE (07:00)
[2022-07-24 07:13] LABS: Basophils # (auto) 0.06 K/uL (0-0.2); Basophils % (auto) 0.6 %; Eosinophils # (auto) 0.15 K/uL (0-0.50); Eosinophils % (auto) 1.6 %; Hematocrit (blood only) 32.5 % (40.1-51.0); Hemoglobin 10.9 g/dl (14.0-18.0); Immature Granulocytes # (auto) 0.02 K/uL (0.00-0.02); Immature Granulocytes % (auto) 0.2 %; Lymphocytes # (auto) 1.86 K/uL (1.2-3.4); Lymphocytes % (auto) 20.1 %; Mean Corpuscular Hemoglobin 29.3 pg (25.0-34.0); Mean Corpuscular Hgb Conc 33.5 g/dL (32.0-36.0); Mean Corpuscular Volume 87.4 fL (80.0-100.0); Mean Platelet Volume 9.5 fL (9.4-12.4); Monocytes # (auto) 0.68 K/uL (0.24-0.82); Monocytes % (auto) 7.4 %; Neutrophils # (auto) 6.48 K/uL (1.4-6.5); Neutrophils % (auto) 70.1 %; Platelet Count 180 K/uL (130-400); RDW Coefficient of Variation 13.1 % (11.5-14.5); Red Blood Count 3.72 M/uL (4.63-6.08); White Blood Count 9.25 K/ul (4.8-10.8)
[2022-07-24 07:33] LABS: Calcium 7.9 mg/dl (8.5-10.1); Creatinine Clr Calc Pharmacy 35.4 ml/min; Est GFR (African American) 52.4 ml/min; Est GFR (Non-African American) 45.2 ml/min; Potassium 3.7 mmol/L (3.5-5.1)
[2022-07-24] MEDS ORDERED: HEALTH SHAKE PO SCH (08:00)
[2022-07-24] MEDS ORDERED: DOCUSATE SODIUM/SENNA 50/8.6MG TAB PO SCH (09:00)
[2022-07-24] MEDS ORDERED: lisinopril 5 MG TAB PO SCH (09:00)
[2022-07-24] MEDS ORDERED: ASPIRIN 81 MG CHEW PO SCH (09:00)
[2022-07-24] MEDS ORDERED: SERTRALINE HCL 100 MG TABLET PO SCH (09:00)
[2022-07-24] MEDS ORDERED: CALCIUM 600MG + VIT D 400 IU TAB PO SCH (09:00)
[2022-07-24] MEDS ORDERED: FLUTICASONE PROPIONATE NA SPR 16 GM BTL SCH (09:00)
[2022-07-24] MEDS ORDERED: HEPARIN SOD 5,000 UNIT/0.5 ML VIAL SQ SCH (09:00)
[2022-07-24] MEDS ORDERED: CEROVITE ADV FORMULA TAB PO SCH (09:00)
[2022-07-24] MEDS ORDERED: METOPROLOL TARTRATE 25 MG TAB PO SCH (09:00)
--- NOTE | 2022-07-24 09:02 | CT Scan Report ---
CT abd pelvis wo con CLINICAL HISTORY: hypotension, rlQ pain TECHNIQUE: Helical axial images of the abdomen and pelvis were obtained. Automated dose lowering tech niques and/or adjustment according to patient size were utilized for this exam. This exam was perfor med without intravenous contrast. CT DOSE: 563.74 mGy.cm COMPARISON: Comparison is made to CT abdomen pelvis 06/07/2022 FINDINGS: Lower chest: Bibasilar atelectasis versus scarring is seen. Liver: Unremarkable. No focal lesions are seen. Gallbladder and biliary tree: No calcified gallstones. Normal caliber wall. No intra- or extrahepatic biliary ductal dilation. Pancreas: Unremarkable, no focal lesions. Spleen: Unremarkable. Adrenals: Unremarkable. Kidneys and ureters: A large left renal cyst is seen. Bladder: Unremarkable. Reproductive organs: Unremarkable. Bowel: A prominent stool burden is noted. Diverticulosis is seen without evidence of diverticulitis. The appendix is normal. There is a small hiatal hernia. Lymph nodes Retroperitoneal: Unremarkable. Pelvic: Unremarkable. Mesenteric: Unremarkable. Peritoneum: Normal. Vessels: Atherosclerotic calcifications are seen. Abdominal wall: Bilateral fat-containing inguinal hernias are seen. Bones: Degenerative changes in the visualized spine. IMPRESSION: No acute abnormalities, in particular no evidence of appendicitis. No bowel obstruction or ileus seen . Additional incidental findings as above. ACT 112: Negative or not required by law. Electronically signed by: Donny Groves M.D. 07/24/2022 8:59 AM
--- NOTE | 2022-07-24 09:44 | XRay Report ---
XR KUB/Abdomen 1 view CLINICAL HISTORY: constipation TECHNIQUE: 1 view of the abdomen was obtained. Comparison: Comparison is made to CT abdomen pelvis 07/23/2022 FINDINGS: Lung bases are unremarkable. The osseous structures are grossly unremarkable. The bowel gas pattern i s nonobstructive. A moderate amount of stool is noted within the large bowel. IMPRESSION: Nonobstructive bowel gas pattern. ACT 112: Negative or not required by law. Electronically signed by: Donny Groves M.D. 07/24/2022 9:43 AM
--- NOTE | 2022-07-24 14:31 | Discharge Summary ---
Discharge Summary Date of Service July 24, 2022 Notes For Next Care Provider Medication Changes From Visit MiraLAX daily Glycerin suppository as needed Admission HPI Per Admitting Provider HISTORY OF PRESENT ILLNESS: An 86-year-old male with past medical history significant for moderate to advanced dementia, oriented to name only as per the family, can recognize his family members, history of hypertension, paroxysmal atrial tachycardia, history of sick sinus syndrome, status post pacemaker, chronic kidney disease stage III, GERD, history of BPH, history of spina bifida occulta, osteopenia, sensorineural hearing loss of both ears, Lewy body dementia with out behavioral disturbance, Alzheimer dementia, essential tremor, REM sleep disorder, depression, hyperlipidemia, hypothyroidism, seasonal allergic rhinitis, sleep apnea, currently living at personal detention at [facility] with his , ambulates without any support,eats food easily chewable. Was brought in because of constipation. As per the , this is the third visit for the constipation and last time he was here was in May with the same problem of consultation and hypotension. He was given enema in the ER and was discharged back. Today he is complaining about lower abdominal discomfort, pain; that is how they know that he is constipated, and brought in here. CAT scan is showing constipation in the preliminary report and blood pressure per EMS was systolic blood pressures in 70s. With the fluids, blood pressure improved in the ER SBP in 140s and 150s . Because of this hypotension, ER wanted to observe in the hospital. Could not get much history from the patient. The patient's son in the room and also called his with whom he lives. No recent fever, no nausea, no vomiting, no complaints of any other pain. As per the son, seems to have some urinary retention. When they straight catheterized him, 300 mL of urine came and he seems a little better. After enema, he had a bowel movement in the ER. Currently, resting comfortably and hemodynamically stable. Admission Exam Per Admitting Provider PHYSICAL EXAMINATION: GENERAL: The patient is somewhat drowsy. HEENT: Pupils are equal, round, and reactive to light. Oral mucosa somewhat dry. NECK: No JVD, no neck masses. CARDIOVASCULAR: S1 and S2 heard. Regular rate and rhythm. No murmur, no gallop. RESPIRATORY SYSTEM: Normal AP diameter. No accessory muscle use. No wheezing, no crackles. ABDOMEN: Soft, bowel sounds present, nontender, no distention. CENTRAL NERVOUS SYSTEM: Drowsy, has bad dementia. Obeys simple commands, moves extremities. EXTREMITIES: No edema, no erythema Principal Dx & Hospital Course #1 = Principal Diagnosis (1) Constipation: (2) Abdominal pain, lower: (3) Advanced dementia: Plan Patient is an 86-year-old man with advanced dementia who lives at [facility]. He was brought in because of low blood pressure and constipation issues. Son reports that his father goes through a pattern of having severe constipation and develops hypotension roughly every [address] scan of the abdomen and pelvis revealed no acute abnormalities in particular no evidence of appendicitis. There was no evidence of bowel obstruction or ileus seen with some and incidental findings including prominent stool burden, a large left renal cyst, bibasilar atelectasis versus scarring in the lower chest, small hiatal hernia and atherosclerotic calcifications. Bilateral fat- containing inguinal hernias were also seen and there was degenerative changes in the visualized spine. The patient is notably on lisinopril although there is no absolute indication why, and I discussed the medications with possible adverse side effects with his son. The patient himself is known to not drink a lot of water voluntarily and does not move around much at home. He is currently on docusate 100 mg twice daily but not on any regular laxative. I discussed with the patient's son that it is important to move him around and help him hydrate better, but in the meantime continue the docusate and continue MiraLAX scheduled daily. If he gets loose stools, back off on the MiraLAX or consider adding a fiber supplement. Caution was given to fiber given he does not drink a lot of fluid and stay hydrated regularly. The patient's son verbalized understanding and this was communicated in the discharge instructions. Additionally, calcium supplements are known to cause constipation as a side effect and in this situation are going to have little benefit. This was discontinued at discharge and close primary care follow-up was recommended to continue stopping medicines with his primary care doctor that would be helpful and minimize polypharmacy effects. At time of discharge patient's blood pressure was in the normal range and he was mentating and ambulating at baseline. He was tolerating p.o. There was Concern about keeping him longer than he needed to because he was already exhibiting some confusion. He is very high risk for delirium. Getting him back home would be the ideal situation. He was discharged in stable condition with close primary care follow-up recommended. Discharge Exam CONSTITUTIONAL: WNWD, vitals as above, generally well-appearing, NAD EYES: normal conjunctivae, no scleral icterus ENT: external ear and nose normal, MMM NECK: trachea midline, RESPIRATORY: clear to auscultation bilaterally, no crackles, rales or wheezes, normal respiratory effort CARDIOVASCULAR: regular rate and rhythm, S1 and 2 heard without murmurs, gallops or rubs, no JVD, no peripheral edema CHEST: inspection of chest was normal GASTROINTESTINAL: soft, nontender, ND, no guarding MUSCULOSKELETAL: strength 5/5 throughout, head is normocephalic and atraumatic SKIN: warm and dry NEUROLOGIC: CN 2-12 grossly intact, no sensory deficit, normal cognition, normal speech, no tremor PSYCHIATRIC: alert, cooperative. Euthymic mood, makes good eye contact, language grossly intact, recent and remote memory grossly intact. Updated Medication List Medication Instructions Recorded Confirmed Type aspirin 81 mg chewable tablet 81 mg PO DAILY 06/06/19 07/23/22 History atorvastatin 20 mg tablet (Lipitor) 20 mg PO HS 06/06/19 07/23/22 History calcium carbonate 600 mg-vitamin 1 tab PO DAILY 06/06/19 07/23/22 History D3 10 mcg (400 unit) tablet (Calcium 600 + D(3)) fluticasone propionate 50 2 spray intranasal DAILY 06/06/19 07/23/22 History mcg/actuation nasal spray,suspension (Flonase Allergy Relief) Health Shake 1 can PO BIDM 06/07/22 07/23/22 History acetaminophen 325 mg tablet 650 mg PO Q4H PRN PAIN/FEVER >100 06/07/22 07/23/22 History (Tylenol) docusate sodium 100 mg capsule 100 mg PO BID 06/07/22 07/23/22 History levothyroxine 50 mcg tablet 50 mcg PO DAILYBB 06/07/22 07/23/22 History lisinopril 5 mg tablet 5 mg PO DAILY 06/07/22 07/23/22 History metoprolol tartrate 25 mg tablet 12.5 mg PO BID 06/07/22 07/23/22 History omeprazole 20 mg capsule,delayed 20 mg PO DAILYBB 06/07/22 07/23/22 History release sertraline 100 mg tablet 100 mg PO QAM 06/07/22 07/23/22 History vit C 250 mg-vit E 90 mg-zinc 40 1 tab PO BID 06/07/22 07/23/22 History mg-copper 1 [id number] capsule (PreserVision AREDS-2) triamcinolone acetonide 0.1 % 1 applic topical BID PRN ITCHY 07/23/22 07/23/22 History topical cream AREAS glycerin (adult) 1 supp [place] DAILY PRN constipation 07/24/22 Rx #12 ea polyethylene glycol 3350 17 17 g PO DAILY #510 grams 07/24/22 Rx gram/dose oral powder (Miralax) Hospital Stay Data Diagnostic Imagining Performed 07/23/22 19:51 CT Abd and Pelvis [CT abd pelvis wo con] Urgent Pending Results Patient Have Any Pending Studies at Discharge: No Discharge Instructions Given to Patient (Per Discharging Provider) Please take all medications as instructed on discharge list below. For ongoing constipation, please take Miralax daily for a goal of moving your bowels daily. You may also need a suppository if not able to tolerate drinking the 8 oz of fluid. Therefore, you are also being provided glycerin suppositories to use as needed. Please continue your stool softeners as currently prescribed. Fiber can be considered but you need to ensure you are drinking at least 4 full glasses of water daily. It is recommended to follow-up with your primary care physician within the next week for a recheck of your blood pressure and continued reduction in number of medications as able. It was a pleasure taking care of you! Please call if you have any questions or problems. You can reach a [facility] hospitalist on duty at [facility] 24 hours a day by calling [phone]. Take care of yourself. Jillian Hidalgo, [facility] Hospitalist Total Time Total Time Spent Total Time Spent (In Minutes): 60
--- NOTE | 2022-07-24 15:26 | Electrocardiogram Report ---
Test Reason : Blood Pressure : / mmHG Vent. Rate : 078 BPM Atrial Rate : 078 BPM P-R Int : 160 ms QRS Dur : 088 ms QT Int : 388 ms P-R-T Axes : 000 028 -14 degrees QTc Int : 442 ms Sinus rhythm with marked sinus arrhythmia with frequent AV dual-paced complexes Abnormal ECG When compared with ECG of 07-JUN-2022 17:56, Electronic ventricular pacemaker has replaced Electronic atrial pacemaker T-wave inversion in Anterior leads less pronounced Confirmed by Peter Shen [id number]) on 07/24/2022 3:26:23 PM Referred By: [facility] Confirmed By:Peter Shen
[2022-07-24] MEDS ORDERED: ATORVASTATIN 20 MG TAB PO SCH (21:00)
== END 2022-07-24 16:43 | disposition home or self-care (01) ==
LOC: ED 18:54 → 2N 18:54